=== PATIENT | female | born 1990 | race Caucasian/White ===

== ENCOUNTER 2020-09-27 14:10 | Emergency (ER) | payer SELFPAY ==
[~2020-09-27] VITALS: Ht 175.3 cm; Wt 94.4 kg
[2020-09-27] MEDS ORDERED: PREN1TAB28 PO (14:39)
[2020-09-27] MEDS ORDERED: MINO100T2 PO (14:39)
[2020-09-27] MEDS ORDERED: ASCO500T8 PO (14:40)
[2020-09-27 15:13] LABS: BASOPHILS % (AUTO) 1 % (0-1); EOSINOPHILS % (AUTO) 1 % (1-7); LYMPHOCYTES % (AUTO) 19 % (22-44); MEAN CORPUSCULAR HEMOGLOBIN 26.4 pg (27.0-34.8); MEAN CORPUSCULAR HGB CONC 33.1 g/dL (32.4-35.8); MEAN PLATELET VOLUME 9.7 fL (7.4-10.4); MONOCYTES % (AUTO) 8 % (2-9); NEUTROPHILS % (AUTO) 71 % (42-75); PLATELET COUNT 214 x10^3/uL (130-400); RED BLOOD COUNT 5.46 x10^6/uL (3.82-5.3); RED CELL DISTRIBUTION WIDTH 14.3 % (9.6-15.2)
[2020-09-27 15:17] LABS: MD NO
[2020-09-27 15:23] LABS: ANION GAP 4 mmol/L (5-15); CALCIUM 8.9 mg/dL (8.5-10.1); CHLORIDE 108 mmol/L (98-107)
[2020-09-27 15:24] LABS: ALANINE AMINOTRANSFERASE 24 U/L (12-78); ALBUMIN 4.1 g/dL (3.4-5.0)
[2020-09-27 15:34] LABS: ALKALINE PHOSPHATASE 53 U/L (45-117); BILIRUBIN,TOTAL 0.6 mg/dL (0.2-1.0); FREE T4 (FREE THYROXINE) 1.18 ng/dL (0.76-1.46); TOTAL PROTEIN 7.3 g/dL (6.4-8.2)
--- NOTE | 2020-09-27 15:39 | NUR ---
PT RESTING COMFORTABLY, NO NEEDS
[2020-09-27 15:58] VITALS: BP 129/76
== END 2020-09-27 17:20 | disposition home or self-care (01) ==
LOC: ED 16:50
DX: Z00.8 Encounter for other general examination (principal); R51.9 Headache, unspecified; R07.9 Chest pain, unspecified
CPT/HCPCS: 36415; 71045; 80053; 84439; 84443; 84703; 85025; 93005; 99285